=== PATIENT | male | born 1955 | race Caucasian/White ===

== ENCOUNTER 2017-02-02 23:14 | Emergency (ER) | payer BC, OTHER ==
[~2017-02-02] VITALS: Ht 182.9 cm; Wt 123.0 kg
[~2017-02-02 23:14] MED LIST: ACIPHEX20 MG PO; ACTOS45 MG PO; ARICEPT10 MG PO; CALCIUM PO; CIALIS5 MG; CINNAMON500 MG PO; CLEOCIN300 MG PO; CLOPIDOGREL75 MG; DONEPEZIL HCL10 MG; DOXYCYCLINE HY100 MG PO; FISH OIL/OMEGA 3 PO; FLOMAX0.4 MG PO; FOLIC ACID0.8 MG PO; GABAPENTIN300 MG PO; GLUCOPHAGE1000 MG PO; GLUCOPHAGE500 MG PO; GRAPE SEED EXTRACT PO; HYDROCHLOROTHIA25 MG; HYDROCHLOROTHIA25 MG PO; HYDROCHLOROTHIAZIDE PO; LANTUS 3 M100 UNITS1; LANTUS 3 M100 UNITS1 SC; LISINOPRIL PO; LISINOPRIL10 MG; METFORMIN HCL500 M1; METFORMIN HCL500 M1 PO; NAMENDA; NAMENDA10 MG; NAMENDA10 MG PO; NEURONTIN300 MG PO; NORCO 5/3251 TABLET PO; PLAVIX75 MG PO; PRINIVIL10 MG PO; TAMSULOSIN HCL0.4 MG; TRAMADOL HCL50 MG PO; TUMERIC PO; VERAPAMIL HCL120 M2 PO; VICTOZA0.6 MG/0.1; VICTOZA0.6 MG/0.1 SC; VITAMIN B-6200 MG PO; VITAMIN B12 PO; VITAMIN C1000 MG PO; VITAMIN D1000 INTUN PO; VITAMIN E1000 UNIT PO; [UNRECOGNIZED DRUG - OTHER]; [UNRECOGNIZED DRUG - OTHER] PO; [UNRECOGNIZED DRUG - OTHER] PO
[2017-02-03] MEDS ORDERED: EPIPEN ADU0.3 MG/0.3 IM (01:53)
[2017-02-03] MEDS ORDERED: PREDNISONE50 MG PO (01:53)
[2017-02-03 02:29] VITALS: BP 152/74
== END 2017-02-03 02:30 | disposition home or self-care (01) ==
LOC: EME → EDBD 23:14 → EME 02-03 02:30
DX: T78.02XA Anaphylactic reaction due to shellfish (crustaceans), initial encounter (principal); I10 Essential (primary) hypertension; E11.9 Type 2 diabetes mellitus without complications; Z79.4 Long term (current) use of insulin; Z79.02 Long term (current) use of antithrombotics/antiplatelets
CPT/HCPCS: 99281; 99284; J0171; J1200; J2930